=== PATIENT | female | born 1990 | race Caucasian/White ===

== ENCOUNTER 2019-03-13 05:23 | Inpatient (IN) | payer OTHER ==
[2019-03-13] VITALS (9 sets, daily range): BP systolic 108–133; BP diastolic 50–85
[~2019-03-13] VITALS: Ht 154.9 cm; Wt 83.4 kg
[2019-03-13] MEDS ORDERED: CLINDAMYCIN 900 MG in APPROPRIATE DILUENT 1 EA IV ONE (06:00)
[2019-03-13] MEDS ORDERED: GENTAMICIN 400 MG in D5W 50 ML IV ONE (06:15)
[2019-03-13] MEDS ORDERED: BICITRA 30ML SOLN UDC As Ordered ONE (06:38)
[2019-03-13 06:48] LABS: HEMATOCRIT 36.6 % (36.0-47.0); HEMOGLOBIN 11.9 g/dl (12.0-15.5); MEAN CORPUSCULAR HEMOGLOBIN 29.7 pg (27.0-33.0); MEAN CORPUSCULAR HGB CONC 32.5 g/dl (32.0-36.5); MEAN CORPUSCULAR VOLUME 91.3 fl (80.0-96.0); PLATELET COUNT, AUTOMATED 331 10^3/uL (150-450); RED BLOOD COUNT 4.01 10^6/uL (4.00-5.40); WHITE BLOOD COUNT 13.2 10^3/uL (4.0-10.0)
[2019-03-13] MEDS ORDERED: LR 1,000 ML IV ONE (07:00)
[2019-03-13] MEDS ORDERED: LR 1,000 ML IV SCH ×2 (07:00→09:30)
[2019-03-13] MEDS ORDERED: BICITRA 30ML SOLN UDC PO ONE (07:00)
[2019-03-13] MEDS ORDERED: NALBUPHINE HCL 10 MG/ML AMP (J2300) IV PRN ×2 (07:51→09:30)
[2019-03-13] MEDS ORDERED: NALOXONE INJ 0.4 MG/1 ML VIAL (J2310) IV PRN ×2 (07:51)
[2019-03-13] MEDS ORDERED: diphenhydrAMINE INJ 50MG/ML VIAL (J1200) IV PRN (07:51)
[2019-03-13] MEDS ORDERED: ONDANSETRON 4MG/2ML VIAL (J2405) IV PRN ×3 (07:51→09:30)
[2019-03-13] MEDS ORDERED: METOCLOPRAMIDE INJ 10MG/2ML VIAL (J2765) IV PRN ×2 (07:51→09:30)
[2019-03-13] MEDS ORDERED: MORPHINE PRES-FREE INJ 10 MG/10 ML VIAL (J2274) As Ordered ONE (08:19)
[2019-03-13] MEDS ORDERED: OXYTOCIN INJ 10 UNITS/ML VIAL (J2590) As Ordered ONE (08:28)
[2019-03-13] MEDS ORDERED: KETOROLAC 60 MG/2 ML VIAL (J1885) As Ordered ONE (08:28)
[2019-03-13] MEDS ORDERED: ePHEDrine SULFATE 25 MG/5 ML(5MG/ML) SYRINGE As Ordered ONE (08:28)
[2019-03-13 08:53] LABS: CORD GAS ABE A -4.6; CORD GAS HCO3 A 25.3 MEQ/L; CORD GAS O2 SAT A < 15.0 %; CORD GAS PO2 A 12.9 mmHg; CORD GAS TCO2 A 27.5 MEQ/L
[2019-03-13 08:56] LABS: CORD GAS ABE V -3.8; CORD GAS HCO3 V 22.8 MEQ/L; CORD GAS O2 SAT V 56.1 %; CORD GAS PCO2 V 47.1 mmHg; CORD GAS PH V 7.302 UNITS; CORD GAS PO2 V 24.2 mmHg; CORD GAS SBC V 20.4 MEQ/L; CORD GAS TCO2 V 24.2 MEQ/L
[2019-03-13] MEDS: PRENATAL VITAMINS CHEWABLE TABLET PO SCH (09:00)
[2019-03-13] MEDS ORDERED: OXYTOCIN DRIP 30 UNITS in APPROPRIATE DILUENT 1 EA IV SCH (09:05)
[2019-03-13] MEDS ORDERED: MEASLES,MUMPS,RUBELLA VACCINE INJ (MMR-II) (90707) SC SCH (09:15)
[2019-03-13] MEDS ORDERED: RHOGAM 300 MCG (1500 IU) INJ (J2790) IM SCH (09:15)
[2019-03-13] MEDS ORDERED: DOCUSATE SODIUM 100 MG CAP PO PRN (09:15)
[2019-03-13] MEDS ORDERED: PERCOCET 5MG/325MG TAB PO PRN ×3 (09:15→09:30)
[2019-03-13] MEDS ORDERED: MEPERIDINE INJ 25 MG/ML VIAL (J2175) IV PRN (09:30)
[2019-03-13] MEDS ORDERED: fentaNYL 100 MCG/2 ML INJECTION (J3010) IV PRN (09:30)
[2019-03-13] MEDS ORDERED: KETOROLAC 30 MG/ML VIAL (J1885) IV PRN (09:30)
[2019-03-13] MEDS ORDERED: OXYTOCIN 30 UNITS IN 0.9% NaCl 500ML IV BAG (J2590) As Ordered ONE (09:34)
[2019-03-13] MEDS: KETOROLAC 30 MG/ML VIAL (J1885) IV SCH ×2 (14:02→19:49)
[2019-03-14 02:00] VITALS: BP 106/55
[2019-03-14] MEDS: KETOROLAC 30 MG/ML VIAL (J1885) IV SCH (02:00)
[2019-03-14] MEDS: IBUPROFEN 800 MG TAB PO SCH ×3 (04:22→19:33)
[2019-03-14 05:53] VITALS: BP 108/58
[2019-03-14 07:47] LABS: HEMATOCRIT 31.3 % (36.0-47.0); HEMOGLOBIN 10.1 g/dl (12.0-15.5); MEAN CORPUSCULAR HEMOGLOBIN 29.1 pg (27.0-33.0); MEAN CORPUSCULAR HGB CONC 32.3 g/dl (32.0-36.5); MEAN CORPUSCULAR VOLUME 90.2 fl (80.0-96.0); PLATELET COUNT, AUTOMATED 270 10^3/uL (150-450); RED BLOOD COUNT 3.47 10^6/uL (4.00-5.40); WHITE BLOOD COUNT 11.2 10^3/uL (4.0-10.0)
--- NOTE | 2019-03-14 09:13 | IPNPDOC ---
Progress Note Date of Service: Mar 14, 2019 Progress Note Mickie is a 28 yo G1 now P1 who underwent an uncomplicated scheduled PLTCS yesterday (13Mar2019) for breech presentation. She is currently recovering on the barriga. No acute events overnight. Ms. Chappell reports feeling well this AM. She has mild abdominal soreness but the pain medications are helping. She had some mild nausea yesterday but this has since resolved. She is tolerating a regular diet this AM. She has ambulated without difficulty. Palafox catheter was just removed. She denies any fevers/chills, SOB, chest pain. She has minimal lochia. Vitals - VSS, normotensive, afebrile, non tachycardic General - AAOX3, sitting up in bed, NAD Abdomen - Fundus firm at U-2. No fundal tenderness. Bandage removed over incision. Incision is clean/dry/intact. Steri strips in place. minimal tenderness to palpation. Extremities - SCDs in place. No edema Urine output - excellent, >100ml/hr Labs: Pre op H/H: 11.9/36.6 --> post op this AM 10.1/31.3 Mickie is doing well and is making an appropriate recovery. Will mon itor for DTV now that palafox removed. Continue regular diet, ambulation, and IS use. Continue routine care. Anticipate DC home tomorrow. Lorrie Vasquez DO VS, I&O, 24H, Fishbone Vital Signs/I&O Vital Signs Date Time Temp Pulse Resp B/P (MAP) Pulse Ox O2 Delivery O2 Flow Rate FiO2 03/14/19 05:53 98.4 88 18 108/58 (75) 96 I&O- Last 24 Hours up to 6 AM 03/14/19 06:00 Intake Total 2100 ml Output Total 4175 ml Balance -2075 ml Laboratory Data 24H LABS Laboratory Tests 2 03/14/19 07:17: Nucleated Red Blood Cells % (auto) 0.0 CBC/BMP Laboratory Tests 03/14/19 07:17 Red Blood Count 3.47 L, Mean Corpuscular Volume 90.2, Mean Corpuscular Hemoglobin 29.1, Mean Corpuscular Hemoglobin Concent 32.3, Red Cell Distribution Width 14.9 H LORRIE VASQUEZ DO Mar 14, 2019 09:13
[2019-03-14] MEDS ORDERED: IBUPROFEN 800 MG TAB PO SCH (10:00)
[2019-03-14 10:05] VITALS: BP 106/57
--- NOTE | 2019-03-14 12:10 | RO ---
DATE OF PROCEDURE: 03/13/2019 PREOPERATIVE DIAGNOSIS: breech presentation declining external cephalic version (ECV) attempt. POSTOPERATIVE DIAGNOSIS: Fetus in oscar breech presentation. PROCEDURE: Primary low transverse section. SURGEON: Dr. Jon SEARCH OPTIMIZATION ANALYST: Dr. Burdick ANESTHESIA: Spinal. FLUIDS: 1100 mL Lactated Ringer's. URINE OUTPUT: 125 mL via Kirkland catheter. ESTIMATED BLOOD LOSS: 500 mL. COMPLICATIONS: None. ANTIBIOTICS: 400 mg gentamicin and 900 mg clindamycin. DETAILED PROCEDURE DESCRIPTION: The risks, benefits, indications and alternatives of the procedure were reviewed with the patient and informed consent was obtained. The patient was taken to the operating room where spinal anesthesia was obtained without difficulty. She was then prepped and draped in the usual fashion in the dorsal position. A surgical time out was then performed in which the patient's identity and planned procedure were verified with the operative team. A Kirkland catheter had been placed previously by nursing staff. A Pfannenstiel skin incision was then made with a scalpel and carried through to the underlying layer of fascia using Bovie electrocautery. The fascia was incised in the midline and the incision was extended laterally with Infante scissors. The superior aspect of the fascial incision was grasped with Michael clamps, elevated, and the underlying rectus muscles were dissected off with a scalpel. Attention was then turned to the inferior aspect of this incision which in a similar fashion was grasped, tented up with Michael clamps and the rectus muscles were dissected off with Infante scissors. The rectus muscles were then at the midline, the peritoneum was identified and entered digitally. The peritoneal incision was then extended horizontally and superiorly with good visualization of the bladder. A bladder blade was then inserted into the abdomen. The vesicouterine peritoneum was then identified and entered sharply with a scalpel. This incision was then extended laterally and a bladder flap was created digitally. Next, the lower uterine segment was incised in a transverse fashion with a scalpel. The uterine incision was then extended manually. The amniotic sac was artificially ruptured productive of clear fluid. The infant was found to be in oscar breech presentation. The infant was then delivered atraumatically through the hysterotomy using the usual breech maneuvers, starting with Pinard's maneuver to deliver the legs, and the Loveset maneuver to deliver the arms, and then finally the Eaefhcgok-Hxilocq-Dhpt maneuver to deliver the head while maintaining flexion of the neck. The 's nose and mouth were then suctioned with a bulb syringe and then the cord was doubly clamped and cut. The infant was then handed off to the awaiting pediatricians. Cord blood gases were then obtained. The placenta was then removed manually. The uterus was then exteriorized and cleared of all clots and debris. The uterine incision was then repaired with #0 Monocryl suture in a running locked fashion. A second layer of #0 Monocryl was then used to imbricate the hysterotomy in a vertical fashion. The posterior cul-de-sac was then irrigated to good effect. The uterus was then returned to the abdomen and the hysterotomy was inspected. There was a small oozing bleed in the middle of the hysterotomy which was controlled with a figure-of-8 suture of #3-0 Vicryl. Excellent hemostasis was then achieved. The pericolic gutters were then irrigated and cleared of all clots and debris. The hysterotomy was again reinspected and was found to be hemostatic. The bladder blade was then removed from the abdomen. The peritoneum was then closed with #3-0 Vicryl suture in a running fashion. The fascia was then closed with #0 Vicryl suture in a running fashion. The subcutaneous fat was then closed with #3-0 Vicryl suture in a continuous fashion. The skin was then closed with #4-0 Monocryl suture in a subcuticular fashion. The incision was then dressed with Steri-Strips and a pressure dressing was applied. At the completion of the case, a bimanual exam was performed confirming the cervix was dilated and lochia was minimal. The patient tolerated the procedure well. The sponge, lap, instrument and needle counts were correct times three. The patient was taken to the recovery room in stable condition. TOMA
[2019-03-14] MEDS: PRENATAL VITAMINS CHEWABLE TABLET PO SCH (12:55)
[2019-03-14 14:08] VITALS: BP 124/78
[2019-03-14 18:10] VITALS: BP 111/59
[2019-03-14 22:33] VITALS: BP 112/62
[2019-03-15 02:32] VITALS: BP 110/58
[2019-03-15] MEDS: IBUPROFEN 800 MG TAB PO SCH ×2 (04:55→12:16)
[2019-03-15 06:26] VITALS: BP 104/55
--- NOTE | 2019-03-15 08:42 | DS.PDOC ---
Discharge Summary General Date of Admission Mar 13, 2019 at 05:23 Date of Discharge Mar 15, 2019 Discharge Summary HOSPITAL COURSE: Ms. Chappell is a 28 yo G1 now P1 who underwent an uncomplicated scheduled PLTCS on 13Mar2019 for breech presentation. Her course has been unremarkable. On her day of discharge she met all appropriate discharge criteria. She was ambulating, voiding, tolerating a regular diet, had minimal lochia, and had minimal pain that was controlled with PO pain medications. DISCHARGE MEDICATIONS: Please see below. ALLERGIES: Please see below. PHYSICAL EXAMINATION ON DISCHARGE: VITAL SIGNS: Please see below. GENERAL: AAOX3, sitting up in bed, NAD ABDOMINAL EXAMINATION: Fundus firm at U-2. No fundal tenderness. Incision clean/dry/intact. Steri strips in place. No tenderness to palpation. EXTREMITIES: No edema PSYCHIATRIC EXAMINATION: Affect appropriate ACTIVITY: Pelvic rest for 6 weeks. No lifting >10pounds for 6 weeks. DIET: Regular DISCHARGE PLAN: Discharge home on 15Mar2019 DISPOSITION: DC home. DISCHARGE INSTRUCTIONS: 1. Pelvic rest for 6 weeks. 2. No heavy lifting. 3. incision check in two weeks ITEMS TO FOLLOWUP ON ON OUTPATIENT: 1. Incision check in 2 weeks DISCHARGE CONDITION: Stable. TIME SPENT ON DISCHARGE: Greater than 20 minutes. Lorrie Jon DO Vital Signs/I&Os Vital Signs Date Time Temp Pulse Resp B/P (MAP) Pulse Ox O2 Delivery O2 Flow Rate FiO2 03/15/19 06:26 97.8 75 16 104/55 (71) 03/14/19 14:08 97 I&O- Last 24 Hours up to 6 AM 03/15/19 06:00 Output Total 1375 ml Balance -1375 ml Discharge Medications No Active Prescriptions or Reported Meds Allergies Coded Allergies: Penicillins (Verified Allergy, Unknown, CHILD, 03/07/19) LORRIE JON DO Mar 15, 2019 08:42
[2019-03-15] MEDS: PRENATAL VITAMINS CHEWABLE TABLET PO SCH (09:31)
[2019-03-15 10:00] VITALS: BP 117/73
[2019-03-15] MEDS ORDERED: COLA100C5 PO (10:11)
[2019-03-15] MEDS ORDERED: OXYC1TAB23 PO (10:11)
[2019-03-15] MEDS ORDERED: MOTR200T44 PO (10:11)
[2019-03-15] MEDS ORDERED: MULTTAB20 PO (10:11)
== END 2019-03-15 12:40 | disposition home or self-care (01) | DRG 773 ==
LOC: M LDI 05:23 → M OBS 11:03
PROVIDERS: ADMIT Obstetrics & Gynecology; ATTEND Obstetrics & Gynecology
PROC: 10D00Z1 Extraction of Products of Conception, Low, Open Approach (ICD-10-PCS; principal; 2019-03-13 07:30)
DX: O32.1XX0 Maternal care for breech presentation, not applicable or unspecified (principal); Z3A.39 39 weeks gestation of pregnancy; Z37.0 Single live birth

== ENCOUNTER → 2021-08-30 | Outpatient (CLI) | payer OTHER ==
[~2021-08-30] VITALS: Ht 154.9 cm; Wt 89.2 kg
[~2021-08-30] MED LIST: COLA100C5 PO; MOTR200T44 PO; MULTTAB20 PO; OXYC1TAB23 PO
[2021-08-30 10:57] VITALS: BP 134/86
--- NOTE | 2021-08-30 14:08 | HPE ---
HISTORY AND PHYSICAL DATE OF ADMISSION: 08/30/2021 This lady is a 30-year-old 2, para 1, last menstrual period (LMP) 12/01/2020, estimated date of confinement (EDC) 09/07/2021 by early ultrasound at 10 weeks and 5 days. Her EDC by her early ultrasound gives her 08/31/2021. She is a 40 weeks tomorrow. She comes in with contractions, clearly ruptured membranes. PAST HISTORY: On 03/13/2019 at 39 weeks, a primary section, 6-pound 3-ounce female for breech presentation, velamentous insertion of cord. On examination, does not appear in acute distress. Has a bit of bloody show. Category 1 strip on the monitor. Some contractions are noted 10 minutes apart. Moderate variability. Baseline is normal. No decelerations are noted. Pelvic examination: There is some blood show. Cervix is posterior, 1-2 cm, -3 station, probably 70%-80% effaced. Bulging membranes and ballottable head. The plan of care is monitor for now. If there is no change, then she is to go home and come back with precautions and plan of care given. If she has ruptured membranes, contractions 5-7 minutes apart, moderate intensity, lasting 40 seconds, decreased movement, or surgical scar pain to return immediately. Otherwise, she has an appointment tomorrow at [facility] [place], at which time a date for induction of labor will be made. In summary, we have a term gestation in very early labor with generally changing cervix. On discharge, her blood pressure was 134/86, respirations 18, pulse 96, temperature 97.8. Patient was discharged undelivered.
== END ==
LOC: M LDO 07:39
PROVIDERS: ATTEND Obstetrics & Gynecology
DX: O60.03 Preterm labor without delivery, third trimester (principal); Z3A.39 39 weeks gestation of pregnancy; O34.219 Maternal care for unspecified type scar from previous cesarean delivery; Z88.0 Allergy status to penicillin; Z79.899 Other long term (current) drug therapy
CPT/HCPCS: 59025; G0378; G0463

== ENCOUNTER 2021-09-01 17:05 | Inpatient (IN) | payer OTHER ==
[2021-09-01] VITALS (8 sets, daily range): BP systolic 112–144; BP diastolic 57–81
[~2021-09-01] VITALS: Ht 154.9 cm; Wt 89.5 kg
[2021-09-01] MEDS ORDERED: OXYTOCIN INJ 10 UNITS/ML VIAL (J2590) As Ordered ONE (17:24)
[2021-09-01] MEDS ORDERED: LIDOCAINE 1% MDV 20ML VIAL As Ordered ONE (17:38)
[2021-09-01] MEDS ORDERED: OXYTOCIN INJ 10 UNITS/ML VIAL (J2590) IM ONE (18:05)
[2021-09-01] MEDS: OXYTOCIN DRIP 30 UNITS in IV 1 EA IV SCH (18:16)
[2021-09-01 18:25] LABS: HEMATOCRIT 37.7 % (36.0-47.0); HEMOGLOBIN 12.2 g/dl (12.0-15.5); MEAN CORPUSCULAR HEMOGLOBIN 29.1 pg (27.0-33.0); MEAN CORPUSCULAR HGB CONC 32.4 g/dl (32.0-36.5); PLATELET COUNT, AUTOMATED 336 10^3/uL (150-450); RED BLOOD COUNT 4.19 10^6/uL (4.00-5.40); WHITE BLOOD COUNT 19.9 10^3/uL (4.0-10.0)
--- NOTE | 2021-09-01 18:30 | HPEPDOC ---
Obstetrical History & Physical General Date of Admission Sep 01, 2021 at 17:20 History of Present Illness 30yo at 40+1 presented to triage for contractions, was found to be fully di lated and could not resist urge to push. Delivered quickly in labor room 1. 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 pertinent history Past Medical History Medical History hidradenitis suppuritiva obesity Surgical History: section Family History Family History mother skin cancer, maternal grandfather unspecified cancer Social History Marital Status: Family situation: Spouse/partner home * Smoker: non-smoker Alcohol: Denies Drugs: denies Abuse Violence Screening Have you been hit/kicked/slapp: No Have you been sexually assault: No Allergies Coded Allergies: Penicillins (Verified Allergy, Unknown, CHILD, 03/07/19) Medications Scheduled No122/Iron/Folic Acid ( Multi Tablet) 1 Each Tablet, 1 TAB PO DAILY Scheduled PRN Docusate Sodium (Colace) 100 Mg Capsule, 100 MG PO QHSP PRN for CONSTIPATION Ibuprofen (Motrin Ib) 200 Mg Tablet, 800 MG PO Q8HP PRN for MODERATE PAIN (PS 5- 7) Oxycodone HCl/Acetaminophen (Oxycodone-Acetaminophen 5-325) 1 Each Tablet, 1 TAB PO Q4HP PRN for MILD PAIN (PS 1-4) Oxycodone HCl/Acetaminophen (Oxycodone-Acetaminophen 5-325) 1 Each Tablet, 2 TAB PO Q4HP PRN for MODERATE PAIN (PS 5-7) Physical Examination Physical Examination GENERAL: Alert and oriented times three. ABDOMEN: Gravid and non-tender to touch. FETUS: Is vertex (VTX) by sterile vaginal examination (SVE), HEART RATE: Regular rate LUNGS: nonlabored breathing EXTREMITIES: No edema. Laboratory Data 24H LABS Laboratory Tests 2 09/01/21 17:23: Serology Scanned Report Hepatitis B Testing Pertinent Laboratoy Data Blood Type: A+ RBC Antibody Screen: Negative HIV: Negative Hepatitis B: Negative Rapid Plasma Reagin: Nonreactive Rubella: Immune Varicella: Immune Chlamydia/Gonorrhea: Negative Group B Streptococcus: Negative Anatomy Ultrasound Placenta Location: Posterior Normal Anatomy: Yes Placenta Previa: No Steroid Therapy Steroid Therapy: No Vaginal Examination Dilation: complete Effacement: 100% Station: +3 Presentation: Cephalic presentation Assessment Heart Rate (FHR): 120 Variability: Moderate Tocometer Contractions: Yes Frequency: every 2-5 min. Multi-drug resistant Organism: No history of MDRO Assessment/Plan Assessment 30yo at 40+1 presented to triage for contractions, was found to be fully dilated and could not resist urge to push. Delivered quickly in labor room 1. Plan 30yo at 40+1 presented to triage for contractions, was found to be fully dilated and could not resist urge to push. Delivered quickly in labor room 1. Labor and Delivery Counseling No ability to consent prior to delivery. SUSANNA LOZANO DO Sep 01, 2021 18:30
[2021-09-01] MEDS ORDERED: MIDAZOLAM INJ 2MG/2ML VIAL (J2250 PER 1MG) As Ordered ONE (18:36)
[2021-09-01] MEDS ORDERED: fentaNYL 100 MCG/2 ML INJECTION (J3010) As Ordered ONE (18:36)
[2021-09-01] MEDS ORDERED: LIDOCAINE 2% 100MG/5ML SDV (FOR ANES.) As Ordered ONE (18:37)
[2021-09-01] MEDS ORDERED: propofoL 500 MG/50 ML VIAL As Ordered ONE (18:37)
[2021-09-01] MEDS ORDERED: ONDANSETRON 4MG/2ML VIAL As Ordered ONE (18:37)
[2021-09-01] MEDS ORDERED: ROCURONIUM BROMIDE 50 MG/5 ML VIAL As Ordered ONE (18:37)
[2021-09-01] MEDS ORDERED: dexameTHASONE 4 MG/ML 1ML VIAL (J1100 PER 1MG) As Ordered ONE (18:37)
[2021-09-01] MEDS ORDERED: cefoTEtan INJ 2GM VIAL (S0074 PER 500MG) As Ordered ONE (19:46)
[2021-09-01] MEDS ORDERED: ACETAMINOPHEN 1000MG 100ML IV BTL (OFIRMEV) (J0131 PER 10MG) As Ordered ONE (19:51)
[2021-09-01] MEDS ORDERED: KETOROLAC 60MG 2ML VIAL As Ordered ONE (20:04)
[2021-09-01] MEDS ORDERED: SUGAMMADEX SODIUM 500 MG/5 ML VIAL (BRIDION) As Ordered ONE (20:05)
[2021-09-01] MEDS ORDERED: METOCLOPRAMIDE INJ 10MG/2ML VIAL (J2765 PER 1) As Ordered ONE (20:09)
[2021-09-01] MEDS ORDERED: propofoL 200 MG/20 ML VIAL As Ordered ONE (20:21)
[2021-09-01] MEDS ORDERED: BUPIVACAINE HCL 0.25% 30ML VIAL As Ordered ONE (20:24)
[2021-09-01] MEDS ORDERED: OXYTOCIN DRIP 30 UNITS in IV 1 EA IV SCH (20:50)
[2021-09-01] MEDS ORDERED: RHOGAM 300 MCG (1500 IU) INJ (J2790) IM SCH (20:50)
[2021-09-01] MEDS ORDERED: METHYLERGONOVINE MALEATE 0.2 MG TAB PO PRN (20:50)
[2021-09-01] MEDS ORDERED: MEASLES,MUMPS,RUBELLA VACCINE INJ (MMR-II) (90707) SC SCH (20:50)
[2021-09-01] MEDS ORDERED: DIBUCAINE 1% OINTMENT 30GM TOP PRN (20:50)
[2021-09-01] MEDS ORDERED: KETOROLAC 30 MG/ML 1ML VIAL IV PRN (21:00)
[2021-09-01] MEDS ORDERED: LR 1,000 ML IV SCH (21:00)
[2021-09-01] MEDS ORDERED: METOCLOPRAMIDE INJ 10MG/2ML VIAL (J2765 PER 1) IV PRN (21:00)
[2021-09-01] MEDS ORDERED: fentaNYL 100 MCG/2 ML INJECTION (J3010) IV PRN (21:00)
[2021-09-01] MEDS ORDERED: oxyCODONE 5MG TAB PO PRN (21:00)
[2021-09-01] MEDS ORDERED: ONDANSETRON 4MG/2ML VIAL IV PRN (21:00)
--- NOTE | 2021-09-01 21:07 | ROOPDOC ---
[facility] Report Of Operation Report of Operation DATE OF PROCEDURE: 09/01/21 PREPROCEDURE DIAGNOSES: 4th degree perineal laceration POSTPROCEDURE DIAGNOSES: 4th degree perineal laceration PROCEDURE PERFORMED: repair of 4th degree perineal laceration SURGEON: Susanna Farrar DO PATIENT INFORMATION COORDINATOR: Stephanie Cruz MD whose assistance with visualization and identification of tissue planes was essential to the completion of this case ANESTHESIA: general ESTIMATED BLOOD LOSS: Approximately 150 mL. COMPLICATIONS: none REMARKS: none FINDINGS: 1cm defect in rectal mucosa, internal and external sphincter completely torn SPECIMENS REMOVED: none DESCRIPTION OF PROCEDURE: After obtaining informed consent the patient was brought to the operating suite and prepped/draped in the usual manner. A timeout was called and the patient name, date of and procedure to be performed were verified. General anesthesia was applied. 2 grams cefotetan was given as prophylaxis. The rectum was examined for defects and the rectal mucosa was found to have a 1cm tear. This was repaired with 4-0 monocryl in running fashion. The internal anal sphincter was identified and grasped with Allis clamps. The ends were reapproximated with 3-0 vicryl figure of eight sutures in an overlapping manner. The external anal sphincter was identified and grasped with Allis clamps. The ends were reapproximated with 3-0 vicryl figure of eight sutures in an overlapping manner. Though this was a fourth degree tear, the depth of the tear was shallow. The rectovaginal septum was found to be substantial after these repairs and repair proceeded with a normal second degree closure with 2-0 vicryl in the usual manner. The rectum was examined and found to be free of suture. 10mL 0.25% bupivacaine was injected as a local anesthetic. The patient was awakened from anesthesia and taken to the PACU in good condition. Orders were placed for a bowel regimen. SUSANNA FARRAR DO Sep 01, 2021 21:07
--- NOTE | 2021-09-01 21:40 | DNPDOC ---
[facility] Delivery Note Delivery Note DATE OF DELIVERY: 01SEP2021 PREDELIVERY DIAGNOSIS: 40+1 weeks' gestation and labor. POST DELIVERY DIAGNOSIS: Delivered. PROCEDURE: Spontaneous vaginal delivery COATER SLATE: Susanna Farrar DO ANESTHESIA: none ESTIMATED BLOOD LOSS: 300 mL. FINDINGS: 8 pound 2 ounce 3680g infant, Score 8/9, bilateral compound hands DELIVERY SUMMARY: Mickie Holbrook presented to labor and delivery triage for a labor check and was found to be completely dilated and +3 station. I was alerted by nursing and entered the room for delivery. The tracing was category I. The mother had an irresistible urge to push. She had not yet had an IV started. Over about 3 contractions the head delivered with compound bilateral hands across its face pointing towards the perineum. The corpus delivered without issue. The was placed on the maternal abdomen. After one minute delay the cord was clamped and cut. 10 units IM pitocin was administered. The placenta was delivered intact. Inspection of the perineum was difficult as she had no anesthesia for the delivery. I did a rectal exam in which the tear appeared to involve the rectum and so I requested that we move to the operating room for better pain control and visualization. Hemostasis was noted. See that operative note for details. SUSANNA FARRAR DO Sep 01, 2021 21:40
[2021-09-01] MEDS: DOCUSATE SODIUM 100MG CAPSULE PO SCH (23:47)
[2021-09-02] VITALS (7 sets, daily range): BP systolic 99–126; BP diastolic 51–63
[2021-09-02 00:03] LABS: HEPATITIS B SURFACE ANTIGEN NEGATIVE (NEGATIVE); HEPATITIS C VIRUS ABY INDEX < 0.0 INDEX (<0.8); HIV 1&2 SCREEN CENTAUR NEGATIVE (NEGATIVE)
[2021-09-02] MEDS: OXYTOCIN DRIP 30 UNITS in IV 1 EA IV SCH (00:12)
[2021-09-02] MEDS ORDERED: LR 1,000 ML IV SCH (01:00)
[2021-09-02] MEDS: ACETAMINOPHEN 500 MG TAB PO SCH ×4 (02:23→20:34)
[2021-09-02] MEDS: IBUPROFEN 800 MG TAB PO SCH ×3 (04:28→20:34)
--- NOTE | 2021-09-02 07:21 | IPNPDOC ---
Progress Note Date of Service: Sep 02, 2021 Progress Note SUBJECT: Mickie Holbrook is a 30-year-old 2 now Para 2002 status post spontaneous vaginal after at 40+1 weeks' at approximately 1725 hours on 01SEP2021 of a male 8 pounds 2 ounces (3680 grams) with 4th degree vaginal laceration and repair performed in OR, doing well day # 1. She has been ambulating, voiding spontaneously without issue and tolerating regular diet. Breast feeding without issue. Reports lochia is like a normal erick od. Patient is ambulating well. OBJECTIVE: VITAL SIGNS: Within normal limits, afebrile. Alert and oriented times three. Breath sounds clear to auscultation. Heart rate: Regular rate and rhythm, no murmurs, rubs or gallops. Abdomen: Fundus firm at U-2. Soft, NTTP. Negative calf tenderness bilaterally. Pelvic (RN can sealer): well approximated 4th degree repair, hemostatic, clean dry intact. Left vulvar abscess (prior to delivery) stable in size ASSESSMENT: as above doing well on day 1. Vitals within normal limits, afebrile, hemodynamically stable with no evidence of infection. We discussed increased risk of infection and wound breakdown with 4th degree tear as well as risk of flatal/anal incontinence. 3% risk of repeat tear in future vaginal deliveries, is option if desired. Discussed no straining on toilet and bowel regimen (colace, miralax) to keep soft stools. Also will see her in one week in clinic to evaluate repair. Will continue her home keflex for left labial abscess (possible hidradenitis). PLAN: 1. Discharge to home tomorrow likely. 2. Tylenol and Motrin for pain. 3. Encourage breast feeding and ambulation, bowel regimen 4. undecided for contraception 5. 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 VS, I&O, 24H, Michele Vital Signs/I&O Vital Signs Date Time Temp Pulse Resp B/P (MAP) Pulse Ox O2 Delivery O2 Flow Rate FiO2 09/02/21 06:00 97.6 69 20 99/51 (67) 97 Room Air I&O- Last 24 Hours up to 6 AM 09/02/21 06:00 Intake Total 1200 ml Output Total 1550 ml Balance -350 ml Laboratory Data 24H LABS Laboratory Tests 2 09/01/21 17:23: Serology Scanned Report Hepatitis B Testing 09/01/21 17:56: Nucleated Red Blood Cells % (auto) 0.0, Syphilis Serology NONREACTIVE 09/01/21 22:04: Hepatitis B Surface Antigen NEGATIVE, Hepatitis C Antibody Index < 0.0, HIV Antigen/Antibody Combo Qual NEGATIVE CBC/BMP Laboratory Tests 09/01/21 17:56 SUSANNA LOZANO DO Sep 02, 2021 07:21
[2021-09-02 08:18] LABS: HEMATOCRIT 30.8 % (36.0-47.0); MEAN CORPUSCULAR HEMOGLOBIN 28.9 pg (27.0-33.0); MEAN CORPUSCULAR HGB CONC 32.1 g/dl (32.0-36.5); MEAN CORPUSCULAR VOLUME 90.1 fl (80.0-96.0); PLATELET COUNT, AUTOMATED 319 10^3/uL (150-450); RED BLOOD COUNT 3.42 10^6/uL (4.00-5.40); WHITE BLOOD COUNT 19.3 10^3/uL (4.0-10.0)
[2021-09-02 08:34] LABS: HEMOGLOBIN 9.9 g/dl (12.0-15.5)
[2021-09-02] MEDS: DOCUSATE SODIUM 100MG CAPSULE PO SCH ×2 (09:13→20:33)
[2021-09-02] MEDS: CEPHALEXIN 500 MG CAP PO SCH ×2 (09:13→20:33)
[2021-09-02] MEDS: PRENATAL VITAMINS CHEWABLE TABLET PO SCH (09:13)
[2021-09-02] MEDS: MIRALAX *UNIT DOSE* 17GM PACKET PO SCH ×2 (09:15→20:33)
[2021-09-03 02:22] VITALS: BP 162/85
[2021-09-03 02:31] VITALS: BP 120/72
[2021-09-03] MEDS: IBUPROFEN 800 MG TAB PO SCH ×2 (03:44→13:02)
[2021-09-03] MEDS: ACETAMINOPHEN 500 MG TAB PO SCH ×2 (03:45→08:57)
[2021-09-03] MEDS ORDERED: DOCU100C16 PO (06:02)
[2021-09-03 06:04] VITALS: BP 122/59
[2021-09-03] MEDS: MIRALAX *UNIT DOSE* 17GM PACKET PO SCH (08:57)
[2021-09-03] MEDS: DOCUSATE SODIUM 100MG CAPSULE PO SCH (08:57)
[2021-09-03] MEDS: CEPHALEXIN 500 MG CAP PO SCH (08:57)
[2021-09-03] MEDS: PRENATAL VITAMINS CHEWABLE TABLET PO SCH (08:57)
[2021-09-03 10:00] VITALS: BP 110/58
--- NOTE | 2021-09-03 11:28 | DSES ---
DISCHARGE SUMMARY DATE OF ADMISSION: 09/01/2021 DATE OF DISCHARGE: 09/03/2021 BRIEF HISTORY: This lady is a 30-year-old 2, now para 2, admitted at 40 weeks of gestation with contractions and had spontaneous vaginal delivery of livebirth male infant weighing 8 pounds 2 ounces, 3680 gm, Apgars 8 and 9 at 1 and 5 minutes respectively. On her second day we discussed phlebitis, cystitis, mastitis, endometritis and cellulitis, diet, exercise, pain management, perineal, breast and wound care. Rest of the examination unremarkable. Normocephalic, atraumatic. Neck full range of motion. Pupils equal and reactive to light. Distal pulses symmetric. No evidence of DVT, PE, or superficial phlebitis. Chest is clear bilateral to bases. No wheezes or rhonchi. No CVA tenderness. Abdomen soft, four quadrant bowel sounds are noted. Uterus 2 below. Lochia is moderate. No rashes, lesions or pruritus. No arthralgias, myalgias, no complaint of joint pain, no complaint of cough, wheeze, shortness of breath or dyspnea on exertion. No nausea, vomiting, diarrhea or constipation. Her admitting hemoglobin 12.2, hematocrit 37.7, platelets 336. Discharge hemoglobin 9.9, hematocrit 30.8 and platelets 319. Vital signs on discharge: Blood pressure 120/72, respirations 18, pulse 71, temperature 97.5. The patient is to hop picker her medications at [place], 6 week checkup at [facility]. All questions were answered. 20 minute discussion. The patient was discharged improved. cc: [facility] Edited: myles 09/04/2021 [id number] MTDD
== END 2021-09-03 14:07 | disposition home or self-care (01) | DRG 768 ==
LOC: M LDO 17:05 → M LDI 17:20 → M OBS 22:27
PROVIDERS: ADMIT Advanced Practice Midwife; ATTEND Advanced Practice Midwife
PROC: 10E0XZZ Delivery of Products of Conception, External Approach (ICD-10-PCS; 2021-09-01)
PROC: 0DQP0ZZ Repair Rectum, Open Approach (ICD-10-PCS; principal; 2021-09-01 18:03)
DX: O48.0 Post-term pregnancy (principal); Z37.0 Single live birth; O70.3 Fourth degree perineal laceration during delivery; Z3A.40 40 weeks gestation of pregnancy; O99.214 Obesity complicating childbirth; E66.9 Obesity, unspecified; O34.219 Maternal care for unspecified type scar from previous cesarean delivery; O64.5XX0 Obstructed labor due to compound presentation, not applicable or unspecified

== ENCOUNTER 2022-02-13 02:43 | Emergency (ER) | payer OTHER ==
[~2022-02-13] VITALS: Ht 154.9 cm; Wt 72.2 kg
[~2022-02-13 02:43] MED LIST changes: +DOCU100C16 PO
[2022-02-13 02:44] VITALS: BP 133/75
[2022-02-13 04:25] LABS: BASO % 0.5 % (0.0-1.0); EOS # 0.2 10^3/uL (0.0-0.5); EOS % 1.9 % (0.0-3.0); HEMATOCRIT 43.9 % (36.0-47.0); HEMOGLOBIN 14.2 g/dl (12.0-15.5); LYMPH # 2.3 10^3/uL (1.5-5.0); LYMPH % 26.2 % (24.0-44.0); MEAN CORPUSCULAR HEMOGLOBIN 27.7 pg (27.0-33.0); MEAN CORPUSCULAR HGB CONC 32.3 g/dl (32.0-36.5); MEAN CORPUSCULAR VOLUME 85.6 fl (80.0-96.0); MONO # 0.6 10^3/uL (0.0-0.8); MONO % 6.4 % (2.0-8.0); NEUTROPHILS # 5.6 10^3/uL (1.5-8.5); NEUTROPHILS % 64.8 % (36.0-66.0); PLATELET COUNT, AUTOMATED 322 10^3/uL (150-450); RED BLOOD COUNT 5.13 10^6/uL (4.00-5.40); WHITE BLOOD COUNT 8.6 10^3/uL (4.0-10.0)
[2022-02-13 04:52] LABS: ALBUMIN 4.1 GM/DL (3.2-5.2); ALT/SGPT 20 U/L (12-78); BILIRUBIN,DIRECT 0.1 MG/DL (0.0-0.2); BILIRUBIN,TOTAL 0.4 MG/DL (0.2-1.0); BLOOD UREA NITROGEN 15 MG/DL (7-18); CALCIUM LEVEL 9.1 MG/DL (8.5-10.1); CARBON DIOXIDE LEVEL 28 MEQ/L (21-32); CHLORIDE LEVEL 109 MEQ/L (98-107); GLOMERULAR FILTRATION RATE > 60.0 (>60); GLUCOSE, FASTING 84 MG/DL (70-100); LIPASE 203 U/L (73-393); POTASSIUM SERUM 4.4 MEQ/L (3.5-5.1); SODIUM LEVEL 141 MEQ/L (136-145); TOTAL PROTEIN 7.5 GM/DL (6.4-8.2)
[2022-02-13 04:57] LABS: HCG, SERUM QUALITATIVE NEGATIVE (NEGATIVE)
== END 2022-02-13 10:04 | disposition home or self-care (01) ==
LOC: M ED 02:43
DX: K80.10 Calculus of gallbladder with chronic cholecystitis without obstruction (principal); Z88.0 Allergy status to penicillin

== ENCOUNTER 2022-02-22 05:03 | Emergency (ER) | payer OTHER ==
[~2022-02-22] VITALS: Ht 154.9 cm; Wt 72.7 kg
[2022-02-22] MEDS ORDERED: KETOROLAC 30 MG/ML 1ML VIAL IV ONE ×2 (06:15→08:30)
[2022-02-22] MEDS ORDERED: ONDANSETRON 4MG/2ML VIAL IV ONE (06:15)
[2022-02-22 06:50] LABS: BASO % 0.3 % (0.0-1.0); EOS # 0.1 10^3/uL (0.0-0.5); EOS % 0.8 % (0.0-3.0); HEMATOCRIT 41.7 % (36.0-47.0); HEMOGLOBIN 13.6 g/dl (12.0-15.5); LYMPH # 1.2 10^3/uL (1.5-5.0); LYMPH % 11.4 % (24.0-44.0); MEAN CORPUSCULAR HEMOGLOBIN 28.5 pg (27.0-33.0); MEAN CORPUSCULAR HGB CONC 32.6 g/dl (32.0-36.5); MEAN CORPUSCULAR VOLUME 87.4 fl (80.0-96.0); MONO # 0.7 10^3/uL (0.0-0.8); MONO % 6.1 % (2.0-8.0); NEUTROPHILS # 8.7 10^3/uL (1.5-8.5); NEUTROPHILS % 80.9 % (36.0-66.0); PLATELET COUNT, AUTOMATED 314 10^3/uL (150-450); RED BLOOD COUNT 4.77 10^6/uL (4.00-5.40); WHITE BLOOD COUNT 10.7 10^3/uL (4.0-10.0)
[2022-02-22 07:14] LABS: HCG, SERUM QUALITATIVE NEGATIVE (NEGATIVE)
[2022-02-22 07:18] LABS: ALT/SGPT 21 U/L (12-78); BILIRUBIN,DIRECT 0.2 MG/DL (0.0-0.2); BILIRUBIN,TOTAL 0.5 MG/DL (0.2-1.0); BLOOD UREA NITROGEN 11 MG/DL (7-18); C REACTIVE PROTEIN QUANTITATIV 4.24 MG/DL (0.00-0.30); CALCIUM LEVEL 8.9 MG/DL (8.5-10.1); CARBON DIOXIDE LEVEL 26 MEQ/L (21-32); CHLORIDE LEVEL 106 MEQ/L (98-107); CREATININE FOR GFR 0.66 MG/DL (0.55-1.30); GLOMERULAR FILTRATION RATE > 60.0 (>60); GLUCOSE, FASTING 71 MG/DL (70-100); LIPASE 102 U/L (73-393); POTASSIUM SERUM 3.7 MEQ/L (3.5-5.1); SODIUM LEVEL 140 MEQ/L (136-145); TOTAL PROTEIN 7.4 GM/DL (6.4-8.2)
[2022-02-22 07:24] LABS: ERYTHROCYTE SEDIMENTATION RATE 11 mm/hr (0-20)
[2022-02-22] MEDS ORDERED: ONDA4TAB6 PO (09:40)
[2022-02-22] MEDS ORDERED: KETO10TAB PO (09:40)
[2022-02-22 09:51] VITALS: BP 104/63
== END 2022-02-22 10:06 | disposition home or self-care (01) ==
LOC: M ED 05:03
DX: K80.40 Calculus of bile duct with cholecystitis, unspecified, without obstruction (principal); R93.2 Abnormal findings on diagnostic imaging of liver and biliary tract
CPT/HCPCS: 76705; 80048; 80076; 83690; 84703; 85025; 85652; 86140; 96374; 96375; 96376; 99284; J1885; J2405

== ENCOUNTER 2022-03-28 07:33 | Day surgery (SDC) | payer OTHER ==
[~2022-03-28] VITALS: Ht 154.9 cm; Wt 71.7 kg
[~2022-03-28 07:33] MED LIST changes: +ACET-907 PO; +KETO10TAB PO; +LR 1,000 ML IV ONE; +ONDA4TAB6 PO
[2022-03-28] MEDS ORDERED: BUPIVACAINE/EPIN 0.25% 30 ML VIAL As Ordered ONE (08:49)
[2022-03-28] MEDS ORDERED: fentaNYL 100 MCG/2 ML INJECTION As Ordered ONE ×4 (08:52→10:43)
[2022-03-28] MEDS ORDERED: dexameTHASONE 4 MG/ML 1ML VIAL (J1100 PER 1MG) As Ordered ONE (08:53)
[2022-03-28] MEDS ORDERED: LIDOCAINE 2% 100MG/5ML SDV (FOR ANES.) As Ordered ONE (08:53)
[2022-03-28] MEDS ORDERED: ONDANSETRON 4MG/2ML VIAL As Ordered ONE (08:53)
[2022-03-28] MEDS ORDERED: MIDAZOLAM INJ 2MG/2ML VIAL (J2250 PER 1MG) As Ordered ONE (08:53)
[2022-03-28] MEDS ORDERED: propofoL 200 MG/20 ML VIAL As Ordered ONE (08:53)
[2022-03-28] MEDS ORDERED: ROCURONIUM BROMIDE 50 MG/5 ML VIAL As Ordered ONE (08:53)
[2022-03-28] MEDS ORDERED: ACETAMINOPHEN 1000MG 100ML IV BTL (OFIRMEV) (J0131 PER 10MG) As Ordered ONE (09:20)
[2022-03-28] MEDS ORDERED: NEOSTIGMINE 10MG/10ML VIAL (J2710 PER 0.5MG) As Ordered ONE (10:01)
[2022-03-28] MEDS ORDERED: GLYCOPYRROLATE INJ 0.2 MG/ML 2 ML VIAL As Ordered ONE (10:01)
[2022-03-28] MEDS ORDERED: KETOROLAC 60MG 2ML VIAL As Ordered ONE (10:15)
[2022-03-28] MEDS: fentaNYL 100 MCG/2 ML INJECTION IV PRN ×4 (10:46→11:05)
[2022-03-28] MEDS: PERCOCET 5MG/325MG TAB PO PRN ×2 (10:48→11:41)
[2022-03-28] MEDS ORDERED: ONDANSETRON 4MG/2ML VIAL IV PRN (10:50)
[2022-03-28] MEDS ORDERED: LR 1,000 ML IV SCH (10:50)
[2022-03-28] MEDS ORDERED: NORCO, ANEXSIA 5/325MG TABLET (HYDROcodone/ACETAMINOPHEN) PO PRN (10:50)
[2022-03-28 11:45] VITALS: BP 130/66
== END 2022-03-28 13:50 | disposition home or self-care (01) ==
LOC: M SDC 07:33
PROVIDERS: ATTEND Surgery
DX: K80.20 Calculus of gallbladder without cholecystitis without obstruction (principal); Z88.0 Allergy status to penicillin
CPT/HCPCS: 47562; 81025; 88304; J0131; J1100; J1885; J2250; J2405; J2710; J3010; S2900